=== PATIENT | male | born 1975 | race Caucasian/White ===

== ENCOUNTER 2018-08-02 16:49 | Emergency (ER) | payer OTHER ==
--- NOTE | 2018-08-02 16:58 | EDPHY ---
H & P Stated Complaint: abd pain Time Seen by Provider: 08/02/18 16:58 HPI/ROS: CHIEF COMPLAINT: Abdominal pain HISTORY OF PRESENT ILLNESS: The patient presents to the ED with progressively worsening abdominal pain over the past 5 days. The patient's pain is now localized to the right lower quadrant and suprapubic area. The patient does report some pain with bowel movements and also reports some dysuria. The patient has no history of urogenital abnormalities. The patient has no significant past medical history. He does report some associated anorexia. He reports subjective fevers. The patient is and is in a monogamous relationship. The patient denies additional respiratory complaints. REVIEW OF SYSTEMS: A comprehensive 10 point review of systems is otherwise negative aside from elements mentioned in the history of present illness. Source: Patient Exam Limitations: No limitations - Personal History Current Tetanus/Diphtheria Vaccine: Yes Current Tetanus Diphtheria and Acellular Pertussis (TDAP): Yes - Medical/Surgical History Hx Asthma: No Hx Chronic Respiratory Disease: No Hx Diabetes: No Hx Cardiac Disease: No Hx Renal Disease: No Hx Cirrhosis: No Hx Alcoholism: No Hx HIV/AIDS: No Hx Splenectomy or Spleen Trauma: No Other PMH: denies - Social History Smoking Status: Never smoked - Physical Exam Exam: General Appearance: Alert, no distress Eyes: Pupils equal and round no pallor or injection ENT, Mouth: Mucous membranes moist Respiratory: There are no retractions, lungs are clear to auscultation Cardiovascular: Regular rate and rhythm Gastrointestinal: Tenderness to palpation in the right lower quadrant with mild guarding, normal bowel sounds Neurological: 5/5 strength all 4 extremities Skin: Warm and dry, no rashes Musculoskeletal: Neck is supple nontender Extremities: symmetrical, full range of motion Constitutional: Initial Vital Signs Temperature (C) 37.1 C 08/02/18 16:53 Heart Rate 68 08/02/18 16:53 Respiratory Rate 16 08/02/18 16:53 Blood Pressure 130/83 H 08/02/18 16:53 O2 Sat (%) 98 08/02/18 16:53 O2 Delivery Mode Room Air Allergies/Adverse Reactions: No Known Allergies Allergy (Unverified 08/02/18 16:53) Home Medications: Medication Instructions Recorded Hydrocodone/APAP 5/325 [[place] 1 - 2 each PO Q6 PRN #20 tab 08/02/18 5/325] Ondansetron Odt [Zofran Odt] 4 mg PO Q4PRN PRN #20 tab 08/02/18 levOFLOXACIN [Levaquin] 500 mg PO DAILY #10 tab 08/02/18 metroNIDAZOLE [Flagyl 500 mg (RX)] 500 mg PO TID #30 tab 08/02/18 Medical Decision Making - Diagnostics Imaging Results: Imaging Impressions Abdomen CT 08/02/18 17:09 Impression: 1. Acute sigmoid colon diverticulitis. 2. Normal appendix. 3. Mild splenomegaly. 4. Advanced degenerative disk disease at L4-L5. Findings were discussed with Tariq Reese MD at 18:14, on 08/02/2018. ED Course/Re-evaluation: Patient presents to the ED with progressively worsening lower abdominal pain. The patient was noted to have lower abdominal tenderness noted on exam. He has no evidence of peritonitis. The patient had an IV established. He was noted to have a slight leukocytosis and normal metabolic panel. The patient was taken for CT scan of the abdomen pelvis which demonstrates sigmoid diverticulitis without perforation or abscess. I re-evaluated the patient informing him of the results. The patient does appear appropriate for outpatient management and will be given a prescription for Cipro and Flagyl. The patient is discharged home with customary aftercare instructions and return precautions. Differential Diagnosis: Differential diagnosis considered includes appendicitis, diverticulitis, pyelonephritis, ureterolithiasis - Data Points Laboratory Results: Laboratory Results 08/02/18 17:13 08/02/18 17:13 08/02/18 08/02/18 17:13 17:13 WBC 12.97 10^3/uL H 10^3/uL (3.80-9.50) RBC 5.38 10^6/uL 10^6/uL (4.40-6.38) Hgb 16.8 g/dL g/dL (13.7-17.5) Hct 48.3 % % (40.0-51.0) MCV 89.8 fL fL (81.5-99.8) MCH 31.2 pg pg (27.9-34.1) MCHC 34.8 g/dL g/dL (32.4-36.7) RDW 11.9 % % (11.5-15.2) Plt Count 275 10^3/uL 10^3/uL (150-400) MPV 10.1 fL fL (8.7-11.7) Neut % (Auto) 71.3 % % (39.3-74.2) Lymph % (Auto) 19.7 % % (15.0-45.0) [place] % (Auto) 6.2 % % (4.5-13.0) Eos % (Auto) 2.2 % % (0.6-7.6) Baso % (Auto) 0.4 % % (0.3-1.7) Nucleat RBC Rel Count 0.0 % % (0.0-0.2) Absolute Neuts (auto) 9.24 10^3/uL H 10^3/uL (1.70-6.50) Absolute Lymphs (auto) 2.56 10^3/uL 10^3/uL (1.00-3.00) Absolute Monos (auto) 0.80 10^3/uL 10^3/uL (0.30-0.80) Absolute Eos (auto) 0.29 10^3/uL 10^3/uL (0.03-0.40) Absolute Basos (auto) 0.05 10^3/uL 10^3/uL (0.02-0.10) Absolute Nucleated RBC 0.00 10^3/uL 10^3/uL (0-0.01) Immature Gran % 0.2 % % (0.0-1.1) Immature Gran # 0.03 10^3/uL 10^3/uL (0.00-0.10) Sodium 138 mEq/L mEq/L (135-145) Potassium 4.1 mEq/L mEq/L (3.5-5.2) Chloride 101 mEq/L mEq/L (97-110) Carbon Dioxide 25 mEq/l mEq/l (22-31) Anion Gap 12 mEq/L mEq/L (6-14) BUN 20 mg/dL mg/dL (7-23) Creatinine 1.0 mg/dL mg/dL (0.7-1.3) Estimated GFR > 60 Glucose 90 mg/dL mg/dL (70-100) Calcium 10.1 mg/dL mg/dL (8.5-10.4) Medications Given: Discontinued Medications Hydromorphone HCl (Dilaudid) 0.5 mg IVP EDNOW ONE Stop: 08/02/18 17:10 Last Admin: 08/02/18 17:14 Dose: 0.5 mg Sodium Chloride (Ns) 1,000 mls @ 0 mls/hr IV EDNOW ONE; Wide Open PRN Reason: Protocol Stop: 08/02/18 17:10 Last Admin: 08/02/18 17:15 Dose: 1,000 mls Departure - Departure Disposition: Home, Routine, Self-Care Clinical Impression: Sigmoid diverticulitis Condition: Good Instructions: Diverticulitis (ED) Additional Instructions: 1. Please take antibiotics as directed. 2. I do recommend following up with your primary care provider as a referral to Gastroenterology may be indicated for further evaluation of your diverticulitis. 3. Return to the ED immediately for increasing pain, fever or other concerns. This may be the sign of a complication of your diverticulitis such as a perforation or abscess. 4. Zofran as needed for nausea 5. [place] as needed for pain Referrals: Rogers Lr DO [Primary Care Provider] - As per Instructions Prescriptions: Hydrocodone/APAP 5/325 [[place] 5/325] 1 - 2 each PO Q6 PRN #20 tab PRN Reason: for pain levOFLOXACIN [Levaquin] 500 mg PO DAILY #10 tab metroNIDAZOLE [Flagyl 500 mg (RX)] 500 mg PO TID #30 tab Ondansetron Odt [Zofran Odt] 4 mg PO Q4PRN PRN #20 tab PRN Reason: For Nausea
[2018-08-02] MEDS ORDERED: NS 1,000 ML IV ONE (17:09)
[2018-08-02] MEDS ORDERED: HYDROmorphONE/DILAUDID 2 MG/ML INJ IVP ONE (17:09)
[2018-08-02] MEDS ORDERED: IOPAMIDOL (ISOVUE-300) 100 ML BTL ONE (17:27)
[2018-08-02 17:32] LABS: PLATELET COUNT 275 10^3/uL (150-400)
[2018-08-02 18:34] VITALS: BP 128/72
== END 2018-08-02 18:34 | disposition home or self-care (01) ==
DX: K57.32 Diverticulitis of large intestine without perforation or abscess without bleeding (principal); E86.9 Volume depletion, unspecified
CPT/HCPCS: 96374; J1170; Q9967